=== PATIENT | male | born 1965 | race Caucasian/White ===

== ENCOUNTER → 2021-01-15 | Outpatient (CLI) | payer BC ==
--- NOTE | 2021-01-16 04:50 | MR ---
EXAMINATION TYPE: MR cervical spine wo con DATE OF EXAM: 01/15/2021 COMPARISON: None HISTORY: Cervicalgia, Headaches Multiplanar multiecho imaging of the cervical spine was performed without contrast. Cervical vertebra have normal alignment. There is no compression fracture. Disc spaces are fairly nor mal for age. The cervical spinal cord has normal signal pattern. There is no edema. There is small po sterior disc bulging at C5-6 and C6-7. There is developmentally adequate spinal canal. The spinal can al measures 8 mm at the narrowest point which is C5-6. Brainstem is intact. Cerebellum appears normal. I see no bony destructive process. IMPRESSION: Mild spondylotic changes with small posterior disc bulging at C5-6 and C6-7. No fracture seen. No spi nal stenosis.
== END | disposition home or self-care (01) ==
LOC: RADMRIMAIN 13:14
PROVIDERS: ATTEND Orthopaedic Surgery Orthopaedic Surgery of the Spine
DX: M50.223 Other cervical disc displacement at C6-C7 level (principal); M47.812 Spondylosis without myelopathy or radiculopathy, cervical region
CPT/HCPCS: 72141

== ENCOUNTER → 2021-08-23 | Outpatient (CLI) | payer BC ==
--- NOTE | 2021-08-23 10:24 | CT ---
EXAMINATION TYPE: CT iac wo con DATE OF EXAM: 08/23/2021 COMPARISON: HISTORY: superior canal Dehiscence syndrome CT DLP: 150mGycm Automated exposure control for dose reduction was used. FINDINGS: The external auditory canals are patent bilaterally. Mastoid air cells show no evidence of abnormal opacification bilaterally. The middle ear ossicles are symmetric and unremarkable. There is no evidence of suspicious surrounding soft tissue density to suggest cholesteatoma. The scutum is preserved bilaterally. The cochlea and the semicircular canals are symmetric and unremarkable. Ves tibular aqueduct and internal carotid canal appear unremarkable. Temporomandibular joints are mainta ined bilaterally. Inflammatory changes present within the right maxillary sinus, left maxillary sinu s, sphenoid sinus and ethmoid air cells IMPRESSION: Sinus disease. Bony covering over the superior semicircular canal is present bilaterally
== END | disposition home or self-care (01) ==
LOC: RADCTMAIN 07:30
PROVIDERS: ATTEND Otolaryngology Otology & Neurotology
DX: H83.8X1 Other specified diseases of right inner ear (principal); H83.8X2 Other specified diseases of left inner ear
CPT/HCPCS: 70480

== ENCOUNTER → 2023-02-19 | Outpatient (CLI) | payer BC ==
--- NOTE | 2023-02-19 21:45 | CT ---
EXAMINATION TYPE: CT abdomen pelvis w con CT DLP: 2373.9 mGycm, Automated exposure control for dose reduction was used. DATE OF EXAM: 02/19/2023 5:36 PM COMPARISON: None CLINICAL INDICATION:Male, 57 years old with history of K57.32; Diverticulitis follow up. TECHNIQUE: Axial CT of the abdomen and pelvis. Sagittal and coronal reformats were created on a [employer] workstation. Contrast used:100 ml mL of Isovue 300 with IV Contrast, (none if empty) Oral contrast used: with Oral Contrast (none if empty) FINDINGS: LOWER CHEST: Unremarkable ABDOMEN LIVER: Unremarkable GALLBLADDER AND BILE DUCTS: Unremarkable. PANCREAS: Unremarkable. SPLEEN: Unremarkable. ADRENAL GLANDS: Unremarkable. KIDNEYS AND URETERS: No evidence of hydronephrosis or renal calculus. The ureters are unremarkable. PELVIS BLADDER: Unremarkable REPRODUCTIVE: Prostate is enlarged in size measuring ? 5.5?cm in transverse dimension. ABDOMEN & PELVIS STOMACH AND BOWEL: No evidence of bowel obstruction. Appendix is normal. No evidence for inflammation . No evidence for diverticulitis. PERITONEUM/RETROPERITONEUM: No evidence of pneumoperitoneum or free fluid. VASCULATURE: No evidence of aortic aneurysm. MUSCULOSKELETAL: No acute osseous abnormalities. Mild disc degeneration changes are present throughou t the thoracolumbar spine. LYMPH NODES: No gross evidence for lymphadenopathy. SOFT TISSUE/ABDOMINAL WALL: Bilateral fat-containing inguinal hernias. Fat-containing umbilical herni a. IMPRESSION: 1. No evidence for acute intra-abdominal infectious process. There is no organizing fluid collection or evidence for diverticulitis in today's exam. 2. Prostatomegaly, correlate with serum PSA. 3. Bilateral fat-containing inguinal hernias.
== END | disposition home or self-care (01) ==
LOC: RADCTMAIN 15:36
PROVIDERS: ATTEND Internal Medicine
DX: K40.20 Bilateral inguinal hernia, without obstruction or gangrene, not specified as recurrent (principal); K57.32 Diverticulitis of large intestine without perforation or abscess without bleeding; N40.0 Benign prostatic hyperplasia without lower urinary tract symptoms
CPT/HCPCS: 74177; Q9967

== ENCOUNTER → 2023-02-19 | Outpatient (CLI) | payer BC ==
--- NOTE | 2023-02-19 15:54 | US ---
EXAMINATION TYPE: US thyroid st tissue head/neck DATE OF EXAM: 02/19/2023 COMPARISON: NONE CLINICAL INDICATION: Male, 57 years old with history of R22.1 LOCALIZED SWELLING, MASS AND LUMP, NECK ; Midline neck cyst seen on prior outside imaging Midline neck submandibular: 1.9 x 0.8 x 1.1cm cystic area seen IMPRESSION: Cystlike structure in the submandibular region. Consider branchial cleft cyst. CT techni que with contrast can further evaluate this finding.
== END | disposition home or self-care (01) ==
LOC: RADUSWWP 14:49
PROVIDERS: ATTEND Otolaryngology
DX: R22.1 Localized swelling, mass and lump, neck (principal)
CPT/HCPCS: 76536

== ENCOUNTER → 2023-07-15 | Outpatient (CLI) | payer BC ==
--- NOTE | 2023-07-16 07:39 | US ---
EXAMINATION TYPE: US thyroid st tissue head/neck DATE OF EXAM: 07/15/2023 COMPARISON: 02/19/23 CLINICAL INDICATION: Male, 58 years old with history of R22.1 LOCALIZED SWELLING; Follow up on January xa Same cystic area was found midline submandibular area measuring 2.4 x 1.4 x 0.9cm. There did not appe ar to be any blood flow seen. Previous measurement 1.9 x 1.[address] soft tissue neck with contr ast further evaluate this finding. IMPRESSION: 1. Slight increased size appearing hypoechoic area within the submandibular region midline.
== END | disposition home or self-care (01) ==
LOC: RADUSWWP 16:52
PROVIDERS: ATTEND Otolaryngology
DX: R22.1 Localized swelling, mass and lump, neck (principal)
CPT/HCPCS: 76536

== ENCOUNTER → 2023-07-17 | Outpatient (CLI) | payer BC ==
--- NOTE | 2023-07-17 08:52 | CT ---
EXAMINATION TYPE: CT soft tissue neck w con DATE OF EXAM: 07/17/2023 COMPARISON: HISTORY: left side neck lump f/u CT DLP: 870.8 mGycm CONTRAST: CT scan of the neck is performed with IV Contrast, patient injected with 100 mL of Isovue 300. Contrast enhanced CT of the neck was performed from the skull base through the lung apices. AIRWAY: The supraglottic, glottic, and subglottic portions of the airway appear patent and free of mass. SALIVARY GLANDS: The submandibular and parotid glands are free of mass or inflammatory process. THYROID GLAND: No nodules or masses seen. LYMPH NODES: No adenopathy seen greater than 1cm. LUNG APICES: No nodule or mass is seen. OTHER: There is a slightly elongate midline cystic structure within the hyoid/suprahyoid region lakeisha uring 1.9 x 1.7 x 1.1 cm felt to reflect a thyroglossal duct cyst. No complicating factors are seen. Vascular structures are patent. No significant degenerative change of the cervical spine. No absces s seen. 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
== END | disposition home or self-care (01) ==
LOC: RADCTMAIN 08:07
PROVIDERS: ATTEND Internal Medicine
DX: R22.1 Localized swelling, mass and lump, neck (principal)
CPT/HCPCS: 70491; Q9967